=== PATIENT | female | born 1990 | race African-American/Black ===

== ENCOUNTER 2024-07-31 08:29 | Emergency (ER) | payer OTHER ==
[~2024-07-31] VITALS: Ht 160 cm; Wt 104.3 kg
[2024-07-31] MEDS ORDERED: ATIVAN0.5 M1 PO (09:07)
[2024-07-31 09:24] LABS: HEMATOCRIT 41.3 % (36.0-45.00); HEMOGLOBIN 13.6 g/dL (12.0-15.00); MEAN CELL VOLUME 83.3 fL (80.00-100.00); MEAN CORPUSCULAR HEMOGLOBIN 27.5 pg (27.00-32.0); PLATELET COUNT 318 K/uL (150-450); RED BLOOD COUNT 4.96 M/uL (4.00-6.00)
[2024-07-31 09:40] LABS: ABG PH 7.439 (7.35-7.45); ABG PO2 110.2 mmHg (80-100); ABG pCO2 34.4 mmHg (35-45); BASE EXCESS -0.7 mmol/l; BICARBONATE 22.8 mmol/l (23-25); SaO2 98.4 %; Tco2 23.8 mmol/l; allen test SATISFACTORY; o2 21 %; puncture site RADIAL RIGHT
[2024-07-31 10:32] LABS: CREATININE SERUM 0.74 mg/dL (0.55-1.02); GFR 89.31; POTASSIUM 3.3 mEq/L (3.5-5.1)
== END 2024-07-31 11:27 | disposition home or self-care (01) ==
LOC: ER 08:29
PROVIDERS: Emergency Medicine
DX: Z77.29 Contact with and (suspected) exposure to other hazardous substances (principal)